=== PATIENT | female | born 1980 | race Caucasian/White ===

== ENCOUNTER 2019-04-08 09:07 | Inpatient (IN) | payer OTHER ==
[2019-04-08] MEDS ORDERED: Labetalol 100 MG Tab PO ONE (10:19)
[2019-04-08] MEDS ORDERED: Ondansetron 4 MG/2 ML SDV IVPUSH PRN (11:41)
[2019-04-08] MEDS ORDERED: Sodium Chloride 0.9% 10 ML Syringe FLUSH PRN (11:41)
[2019-04-08] MEDS ORDERED: Nalbuphine 10 MG/1 ML Vial IVPUSH PRN (11:41)
[2019-04-08] MEDS ORDERED: Oxytocin/Lactated Ringers 10 UNIT/1,000 ML BAG IV SCH (11:45)
[2019-04-08] MEDS: Lactated Ringers 1,000 ML IV SCH ×2 (12:51→21:22)
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
[2019-04-08] MEDS ORDERED: ePHEDrine 50 MG/ML SDV IVPUSH PRN (14:10)
[2019-04-08] MEDS ORDERED: diphenhydrAMINE 50 MG/ML SDV IVPUSH PRN (14:10)
[2019-04-08] MEDS ORDERED: fentaNYL 100 MCG/2 ML SDV EPIDUR PRN (14:10)
--- NOTE | 2019-04-08 14:15 | PCM.PREANE ---
Preanesthetic Assessment - Procedure Proposed Procedure: shaji - Anesthesia/Transfusion/Family Hx Anesthesia History: Prior Anesthesia Without Reaction Family History of Anesthesia Reaction: No Transfusion History: No Prior Transfusion(s) - Review of Systems General: No Symptoms Pulmonary: No Symptoms Cardiovascular: No Symptoms Gastrointestinal: No Symptoms Neurological: No Symptoms Other: Reports: Diabetes (gestational), Liver Problems (patel- non alcoholic steatohepatitis), Thyroid Problems - Physical Assessment Vital Signs: Last Vital Signs Temp 98.1 F 04/08/19 09:29 Pulse 72 04/08/19 10:46 Resp 18 04/08/19 09:29 BP 141/98 H 04/08/19 10:46 Pulse Ox 100 04/08/19 09:29 Height: 5 ft 9 in Weight: 93.894 kg ASA Class: 2 Mental Status: Alert & Oriented x3 Airway Class: Mallampati = 1 Dentition: Reports: Normal Dentition Thyro-Mental Finger Breadths: 3 Mouth Opening Finger Breadths: 3 ROM/Head Extension: Full Lungs: Clear to Auscultation, Normal Respiratory Effort Cardiovascular: Regular Rate, Regular Rhythm - Lab Values: Laboratory Last Values WBC 8.58 K/mm3 (3.98-10.04) 04/08/19 10:29 RBC 4.82 M/mm3 (3.98-5.22) 04/08/19 10:29 Hgb 13.9 gm/dl (11.2-15.7) 04/08/19 10:29 Hct 41.6 % (34.1-44.9) 04/08/19 10:29 MCV 86.3 fl (79.4-94.8) 04/08/19 10:29 MCH 28.8 pg (25.6-32.2) 04/08/19 10:29 MCHC 33.4 g/dl (32.2-35.5) 04/08/19 10:29 RDW Std Deviation 43.0 fL (36.4-46.3) 04/08/19 10:29 Plt Count 262 K/mm3 (182-369) 04/08/19 10:29 MPV 10.8 fl (9.4-12.3) 04/08/19 10:29 Neut % (Auto) 68.1 % (34.0-71.1) 04/08/19 10:29 Lymph % (Auto) 20.2 % (19.3-51.7) 04/08/19 10:29 Sac % (Auto) 10.5 % (4.7-12.5) 04/08/19 10:29 Eos % (Auto) 0.7 (0.7-5.8) 04/08/19 10:29 Baso % (Auto) 0.3 % (0.1-1.2) 04/08/19 10:29 Neut # (Auto) 5.84 K/mm3 (1.56-6.13) 04/08/19 10:29 Lymph # (Auto) 1.73 K/mm3 (1.18-3.74) 04/08/19 10:29 Sac # (Auto) 0.90 K/mm3 (0.24-0.36) H 04/08/19 10:29 Eos # (Auto) 0.06 K/mm3 (0.04-0.36) 04/08/19 10: Baso # (Auto) 0.03 K/mm3 (0.01-0.08) 04/08/19 10:29 BUN 12 mg/dL (7-18) 04/08/19 10:29 Creatinine 0.8 mg/dL (0.55-1.02) 04/08/19 10:29 Est Cr Clr Drug Dosing 101.60 mL/min 04/08/19 10:29 Estimated GFR (MDRD) > 60 mL/min (>60) 04/08/19 10:29 Uric Acid 4.4 mg/dL (2.6-6.0) 04/08/19 10:29 AST 14 U/L (15-37) L 04/08/19 10:29 ALT 11 U/L (14-59) L 04/08/19 10:29 Lactate Dehydrogenase 146 U/L (81-234) 04/08/19 10:29 Urine Color Yellow (Yellow) 04/08/19 10:00 Urine Appearance Slt cloudy (Clear) H 04/08/19 10:00 Urine pH 5.5 (5.0-8.0) 04/08/19 10:00 Ur Specific [place] 1.025 (1.005-1.030) 04/08/19 10:00 Urine Protein Trace (Negative) H 04/08/19 10:00 Urine Glucose (UA) Negative (Negative) 04/08/19 10:00 Urine Ketones Trace (Negative) H 04/08/19 10:00 Urine Occult Blood Negative (Negative) 04/08/19 10:00 Urine Nitrite Negative (Negative) 04/08/19 10:00 Urine Bilirubin Negative (Negative) 04/08/19 10:00 Urine Urobilinogen 0.2 (0.2-1.0) 04/08/19 10:00 Ur Leukocyte Esterase 1+ (Negative) H 04/08/19 10:00 - Allergies Allergies/Adverse Reactions: Allergies Allergy/AdvReac Type Severity Reaction Status Date / Time sulfamethoxazole Allergy Hives Verified 03/30/19 22:14 [From ] trimethoprim [From ] Allergy Hives Verified 03/30/19 22:14 - Blood Blood Available: No - Acknowledgements Anesthesia Type Planned: Epidural Pt an Appropriate Candidate for the Planned Anesthesia: Yes Alternatives and Risks of Anesthesia Discussed w Pt/Guardian: Yes Pt/Guardian Understands and Agrees with Anesthesia Plan: Yes PreAnesthesia Questionnaire - Past Health History Medical/Surgical History: Denies Medical/Surgical History Cardiovascular History: Reports: None Respiratory History: Reports: Asthma (exercise induced- uses inhaler before running- its been months since used albuteral inhaler) Gastrointestinal History: Reports: GERD (with ) : 1 (38 4) Para: 0 Psychiatric History: Reports: Anxiety, Depression Endocrine/Metabolic History: Reports: Diabetes Mellitus, Type 3c, Other (See Below) Other Endocrine/Metabolic History: HASHIMOTOS DISEASE Hematologic History: Reports: Other (See Below) (patel) Oncologic (Cancer) History: Reports: None - Past Surgical History HEENT Surgical History: Reports: Myringotomy w Tube(s), Tonsillectomy GI Surgical History: Reports: Cholecystectomy Endocrine Surgical History: Reports: None Neurological Surgical History: Reports: Other (See Below) (lipomas removed) - SUBSTANCE USE Smoking Status *Q: Never Smoker Tobacco Use Within Last Twelve Months: No Second Hand Smoke Exposure: No Days Per Week of Alcohol Use: 0 Recreational Drug Use History: No - HOME MEDS Home Medications: Home Meds Calcium Carbonate [Calcium] 500 mg PO DAILY 03/30/19 [History] Loratadine [Claritin] 10 mg PO 03/30/19 [History] Magnesium 200 mg PO DAILY 03/30/19 [History] Pnv No.95/Ferrous Fum/Folic AC [ Caplet] 1 tab PO DAILY 03/30/19 [ History] metFORMIN [Glucophage] 850 mg PO DAILY 03/30/19 [History] - CURRENT (IN HOUSE) MEDS Current Meds: Current Medications Lactated Ringer's (Ringers, Lactated) 1,000 mls @ 100 mls/hr IV ASDIRECTED MARK Last Admin: 04/08/19 12:51 Dose: 100 mls/hr Oxytocin/Lactated Ringer's (Pitocin In Lr 10 Units/1,000 Ml) 10 unit in 1,000 mls @ 12 mls/hr IV TITRATE MARK; Protocol Last Titration: 04/08/19 14:02 Dose: 6 munits/min, 36 mls/hr Nalbuphine HCl (Nubain) 10 mg IVPUSH Q2H PRN PRN Reason: Pain Ondansetron HCl (Zofran) 4 mg IVPUSH Q4H PRN PRN Reason: Nausea/Vomiting Sodium Chloride (Saline Flush) 10 ml FLUSH ASDIRECTED PRN PRN Reason: Keep Vein Open Discontinued Medications Labetalol HCl (Normodyne) 200 mg PO ONETIME ONE Stop: 04/08/19 10:20 Last Admin: 04/08/19 10:46 Dose: 200 mg
[2019-04-08] MEDS ORDERED: Acetaminophen 325 MG Tab PO ONE (17:10)
[2019-04-08] MEDS ORDERED: fentaNYL/Bupivacaine in NS PF 2 MCG-0.125% 250 ML Premix EPIDUR PRN (18:59)
[2019-04-08] MEDS ORDERED: Oxytocin/Lactated Ringers 20 UNIT/1,000 ML BAG IV SCH ×2 (21:56→22:15)
[2019-04-09] MEDS ORDERED: Bupivacaine 0.25% 10 ML SDV ONE
[2019-04-09] MEDS: Lactated Ringers 1,000 ML IV SCH ×4 (00:58→11:30)
[2019-04-09] MEDS ORDERED: Labetalol 100 MG Tab PO PRN (06:23)
[2019-04-09] MEDS ORDERED: Oxytocin/Lactated Ringers 20 UNIT/1,000 ML BAG IV SCH ×3 (08:45→09:15)
[2019-04-09] MEDS ORDERED: Benzocaine/Menthol 20%-0.5% Spray 56 GM Canister TOP PRN (13:23)
[2019-04-09] MEDS ORDERED: Hydrocortisone 1% Crm 30 GM Tube TOP PRN (13:23)
[2019-04-09] MEDS ORDERED: Witch Hazel Medicated Pads 40/Jar TOP PRN (13:23)
[2019-04-09] MEDS ORDERED: Lanolin 100% Cream 7 GM Tube TOP PRN (13:23)
[2019-04-09] MEDS ORDERED: Acetaminophen 325 MG Tab PO PRN (13:23)
[2019-04-09] MEDS: Ibuprofen 600 MG Tab PO PRN ×2 (13:34→20:01)
[2019-04-10] MEDS: Ibuprofen 600 MG Tab PO PRN ×2 (02:08→08:19)
--- NOTE | 2019-04-10 11:14 | PCM48HPAN ---
Post Anesthesia Note - EVALUATION WITHIN 48HRS OF ANESTHETIC Vital Signs in Normal Range: Yes Patient Participated in Evaluation: Yes Respiratory Function Stable: Yes Airway Patent: Yes Cardiovascular Function Stable: Yes Hydration Status Stable: Yes Pain Control Satisfactory: Yes Nausea and Vomiting Control Satisfactory: Yes Mental Status Recovered: Yes Vital Signs: Last Vital Signs Temp 36.7 C 04/10/19 09:38 Pulse 78 04/10/19 09:38 Resp 16 04/10/19 09:38 BP 140/88 04/10/19 09:38 Pulse Ox 98 04/10/19 09:38 - COMMENTS/OBSERVATIONS Free Text/Narrative:: no anesthesia complications noted
--- NOTE | 2019-04-10 14:44 | PCM.SN ---
- Free Text/Narrative Note: Delivery note: Kayli is a 38-year-old 1 now para 1001 white female was admitted on the afternoon of 04/08/2019 after a nonreassuring biophysical profile score of 4/8. She is a gestational diabetic on metformin and was undergoing biophysical profiles.. Decision is made to proceed at at that time, with a gestational age of 38-5/7 weeks to proceed with induction of labor. She proceeded with Pitocin induction of labor with artificial rupture membranes augmentation. She arrived to complete cervical dilation by approximately 1100 hrs. on 04/09/2019. An epidural in place for labor analgesia. She was getting somewhat fatigued and was having deep variable decelerations and decision was made to offer vacuum extraction delivery. She is accepting of this after discussion of the risks and benefits. She then underwent vacuum extraction and delivered a viable, dean, male with Apgars of 8 and 9, weight of 3230 g (7 pounds 1.9 ounces), length was 20.5 inches in a right occiput anterior position. The baby was placed on mom's abdomen, nose and mouth were bulb suctioned. Nuchal cord was found to be nuchal 1 and had a true knot which was tied around the baby's feet. Pitocin was increased to 500 mL per hour to facilitate increase in uterine tone and decrease likelihood of bleeding. Cord was allowed to pulsate for 1-2 minutes and then was cut by the baby's father. Patient had a second-degree perineal laceration which was repaired with 3-0 Monocryl in a routine fashion. Labor epidural was used for perineal anesthesia. Patient tolerated the repair well. Cord blood was obtained. The umbilical cord had 3 vessels. Plans to breast-feed. Estimated blood loss was 200 mL. Condition: Good
--- NOTE | 2019-04-10 15:02 | PCM.DCSUM1 ---
Discharge Summary - Hospital Course Free Text/Narrative:: Kayli is a 38-year-old 1 now para 1001 white female was admitted on the afternoon of 04/08/2019 after a nonreassuring biophysical profile score of 4/8. She is a gestational diabetic on metformin and was undergoing biophysical profiles.. Decision is made to proceed at at that time, with a gestational age of 38-5/7 weeks to proceed with induction of labor. She proceeded with Pitocin induction of labor with artificial rupture membranes augmentation. She arrived to complete cervical dilation by approximately 1100 hrs. on 04/09/2019. An epidural in place for labor analgesia. She was getting somewhat fatigued and was having deep variable decelerations and decision was made to offer vacuum extraction delivery. She is accepting of this after discussion of the risks and benefits. She then underwent vacuum extraction and delivered a viable, dean, male infant with Apgars of 8 and 9, weight of 3230 g (7 pounds 1.9 ounces), length was 20.5 inches in a right occiput anterior position. The baby was placed on mom's abdomen, nose and mouth were bulb suctioned. Nuchal cord was found to be nuchal 1 and had a true knot which was tied around the baby's feet. Pitocin was increased to 500 mL per hour to facilitate increase in uterine tone and decrease likelihood of bleeding. Cord was allowed to pulsate for 1-2 minutes and then was cut by the baby's father. Patient had a second-degree perineal laceration which was repaired with 3-0 Monocryl in a routine fashion. Labor epidural was used for perineal anesthesia. Patient tolerated the repair well. Cord blood was obtained. The umbilical cord had 3 vessels. Plans to breast-feed. Estimated blood loss was 200 mL. Condition: Good Diagnosis: Stroke: No - Discharge Data Discharge Date: 04/10/19 Discharge Disposition: Home, Self-Care 01 Condition: Good - Referral to Home Health Primary Care Physician: Derrell Puckett MD - Patient Instructions Diet: Regular Diet as Tolerated (nursing diet ) Activity: As Tolerated (No intercourse or tampons until bleedign stops) Driving: May Drive Today Showering/Bathing: May Shower (May take a bath) Notify Provider of: Fever, Increased Pain, Swelling and Redness, Nausea and/or Vomiting - Discharge Plan Home Medications: Home Meds Calcium Carbonate [Calcium] 500 mg PO DAILY 03/30/19 [History] Loratadine [Claritin] 10 mg PO 03/30/19 [History] Magnesium 200 mg PO DAILY 03/30/19 [History] Pnv No.95/Ferrous Fum/Folic AC [ Caplet] 1 tab PO DAILY 03/30/19 [ History] Acetaminophen [Tylenol] 650 mg PO Q4H PRN tablet 04/10/19 [Rx] Ibuprofen [Motrin] 600 mg PO Q4H PRN tablet 04/10/19 [Rx] Referrals: Derrell Puckett MD [Primary Care Provider] - (RTC-2 weeks-Dr. Puckett) - Discharge Summary/Plan Comment DC Time >30 min.: No Discharge Summary/Plan Comment: Discharge instructions: 1. Discharge home 2. Diet, activity and follow-up discussed with patient. Recommend nursing diet with increased calories and calcium. 3. Precautions given concern increased pain, bleeding, temperature, signs/ symptoms of DVT/PE. 4. Medications per home medication was printed, discussed with and given to the patient. 5. Return to clinic-Dr. Puckett-[facility] in 2 weeks. Diagnosis: Term -delivered Condition: Good - Patient Data Vitals - Most Recent: Last Vital Signs Temp 36.7 C 04/10/19 09:38 Pulse 78 04/10/19 09:38 Resp 16 04/10/19 09:38 BP 140/88 04/10/19 09:38 Pulse Ox 98 04/10/19 09:38 Weight - Most Recent: 93.894 kg I&O - Last 24 hours: Intake & Output 04/09/19 04/10/19 04/10/19 22:59 06:59 14:59 Intake Total 1180 320 Balance 1180 320 Med Orders - Current: Current Medications Acetaminophen (Tylenol) 650 mg PO Q4H PRN PRN Reason: mild pain or fever Benzocaine/Menthol (Dermoplast Pain Relief [place]) 0 gm TOP ASDIRECTED PRN PRN Reason: Perineal Comfort Measure Last Admin: 04/09/19 13:33 Dose: 1 can Emollient Ointment (Lansinoh Hpa) 0 gm TOP ASDIRECTED PRN PRN Reason: Sore Nipples Hydrocortisone (Hydrocortisone 1% Crm) 30 gm TOP ASDIRECTED PRN PRN Reason: Hemorrhoids Ibuprofen (Motrin) 600 mg PO Q4H PRN PRN Reason: Mild pain or fever Last Admin: 04/10/19 08:19 Dose: 600 mg Witch Linnette (Tucks) 1 pad TOP ASDIRECTED PRN PRN Reason: Pain Last Admin: 04/09/19 13:33 Dose: 1 jar Discontinued Medications Acetaminophen (Tylenol) 650 mg PO NOW ONE Stop: 04/08/19 17:11 Last Admin: 04/08/19 17:17 Dose: 650 mg Diphenhydramine HCl (Benadryl) 25 mg IVPUSH Q6H PRN PRN Reason: pruritis Last Admin: 04/09/19 03:18 Dose: 25 mg Ephedrine Sulfate (Ephedrine Sulfate) 5 mg IVPUSH ASDIRECTED PRN PRN Reason: Hypotension Fentanyl (Sublimaze) 100 mcg EPIDUR Q3H PRN PRN Reason: Pain Fentanyl/Bupivacaine HCl (Fentanyl/Bupivacaine/Ns 2 Mcg-0.125% 250 Ml) 2 mcg EPIDUR ONETIME PRN PRN Reason: Abdominal Pain Last Admin: 04/09/19 00:32 Dose: 2 mcg Lactated Ringer's (Ringers, Lactated) 1,000 mls @ 100 mls/hr IV ASDIRECTED MARK Last Admin: 04/09/19 11:30 Dose: 100 mls/hr Oxytocin/Lactated Ringer's (Pitocin In Lr 10 Units/1,000 Ml) 10 unit in 1,000 mls @ 12 mls/hr IV TITRATE MARK; Protocol Last Titration: 04/08/19 20:04 Dose: 18 munits/min, 108 mls/hr Oxytocin 20 unit/ Lactated (Ringer's) 1,002 mls @ 60.12 mls/hr IV TITRATE MARK; Protocol Oxytocin 20 unit/ Lactated (Ringer's) 1,002 mls @ 60.12 mls/hr IV TITRATE MARK; Protocol Oxytocin/Lactated Ringer's (Pitocin In Lr 20 Units/1,000 Ml) 20 unit in 1,000 mls @ 60 mls/hr IV TITRATE MARK; Protocol Last Admin: 04/08/19 21:58 Dose: 60 mls/hr Oxytocin/Lactated Ringer's (Pitocin In Lr 20 Units/1,000 Ml) 20 unit in 1,000 mls @ 6 mls/hr IV TITRATE MARK; Protocol Oxytocin/Lactated Ringer's (Pitocin In Lr 20 Units/1,000 Ml) 20 unit in 1,000 mls @ 60 mls/hr IV TITRATE MARK; Protocol Oxytocin/Lactated Ringer's (Pitocin In Lr 20 Units/1,000 Ml) 20 unit in 1,000 mls @ 42 mls/hr IV TITRATE MARK; Protocol Last Admin: 04/09/19 08:56 Dose: 42 mls/hr Oxytocin/Lactated Ringer's (Pitocin In Lr 20 Units/1,000 Ml) 20 unit in 1,000 mls @ 6 mls/hr IV TITRATE MARK; Protocol Labetalol HCl (Normodyne) 200 mg PO ONETIME ONE Stop: 04/08/19 10:20 Last Admin: 04/08/19 10:46 Dose: 200 mg Labetalol HCl (Normodyne) 100 mg PO Q4H PRN PRN Reason: Hypertension Last Admin: 04/09/19 06:37 Dose: 100 mg Nalbuphine HCl (Nubain) 10 mg IVPUSH Q2H PRN PRN Reason: Pain Ondansetron HCl (Zofran) 4 mg IVPUSH Q4H PRN PRN Reason: Nausea/Vomiting Sodium Chloride (Saline Flush) 10 ml FLUSH ASDIRECTED PRN PRN Reason: Keep Vein Open
== END 2019-04-10 19:30 | disposition home or self-care (01) | DRG 807 ==
LOC: JD.OB 09:07 → OBSVTOIN 04-09 12:10 → JD.OB 04-09 12:11
PROVIDERS: ADMIT Obstetrics & Gynecology; ATTEND Obstetrics & Gynecology
PROC: 10D07Z6 Extraction of Products of Conception, Vacuum, Via Natural or Artificial Opening (ICD-10-PCS; principal; 2019-04-09)
PROC: 3E033VJ Introduction of Other Hormone into Peripheral Vein, Percutaneous Approach (ICD-10-PCS; 2019-04-09)
PROC: 0KQM0ZZ Repair Perineum Muscle, Open Approach (ICD-10-PCS; 2019-04-09)
PROC: 10907ZC Drainage of Amniotic Fluid, Therapeutic from Products of Conception, Via Natural or Artificial Opening (ICD-10-PCS; 2019-04-09)
DX: O24.429 Gestational diabetes mellitus in childbirth, unspecified control (principal); Z37.0 Single live birth; O16.4 Unspecified maternal hypertension, complicating childbirth; O99.284 Endocrine, nutritional and metabolic diseases complicating childbirth; E06.3 Autoimmune thyroiditis; O76 Abnormality in fetal heart rate and rhythm complicating labor and delivery; O69.1XX0 Labor and delivery complicated by cord around neck, with compression, not applicable or unspecified; O70.1 Second degree perineal laceration during delivery; Z3A.38 38 weeks gestation of pregnancy
CPT/HCPCS: 01967; 36415; 51702; 59025; 59409; 81003; 82565; 83615; 84450; 84460; 84520; 84550; 85025; 86592; A9270-GY; J1200; J2590; J3490; J7120